=== PATIENT | female | born 2000 | race Caucasian/White ===

== ENCOUNTER 2021-08-24 11:24 | Outpatient (REF) | payer MEDICAID, SELFPAY ==
[2021-08-24 12:25] LABS: Binax Internal Control QC Valid; Binax Now Covid-19 Ag Negative (Negative)
== END 2021-08-24 11:25 | disposition home or self-care (01) ==
LOC: HO.LAB 11:24
PROVIDERS: Visit Provider Internal Medicine
DX: Z20.822 Contact with and (suspected) exposure to COVID-19 (principal)
CPT/HCPCS: C9803

== ENCOUNTER 2021-10-08 11:00 | Outpatient (RCR) | payer OTHER, SELFPAY | END 2021-10-08 11:25 | disposition home or self-care (01) | LOC: HO.OT 11:00 | PROVIDERS: PCP Pediatrics; Visit Provider Orthopaedic Surgery | DX: M79.643 Pain in unspecified hand (principal) | CPT/HCPCS: 97110; 97140; 97165 ==

== ENCOUNTER 2022-07-26 11:00 | Outpatient (RCR) | payer OTHER, SELFPAY | END 2022-07-27 10:24 | disposition home or self-care (01) | LOC: HO.OT 11:00 | PROVIDERS: Visit Provider Orthopaedic Surgery | DX: M79.641 Pain in right hand (principal); M79.642 Pain in left hand; R53.1 Weakness | CPT/HCPCS: 29125; 97110; 97165; 97760 ==

== ENCOUNTER 2025-06-24 10:40 | Outpatient (REF) | payer OTHER, SELFPAY ==
[2025-06-24 12:15] LABS: MANUAL DIFF FLAG NO
[2025-06-24 12:58] LABS: Hematocrit 43.8 % (37.0-47.0); Hemoglobin 14.0 g/dl (12.0-16.0); Imm Gran Abs Auto 0.03 X10*3/uL (0.00-0.03); Imm Gran Pct Auto 0.4 % (0.0-0.4); Lymphocytes Absolute Auto 1.9 X10*3/uL (1.2-4.9); Mean Corpuscular HGB Conc 32.0 g/dl (31.0-35.0); Mean Corpuscular Hemoglobin 30.3 pg (27.0-33.0); Mean Corpuscular Volume 94.8 fL (80.0-98.0); NRBC Abs Auto 0.000 X10*3/uL (0.0-0.012); NRBC Pct Auto 0.0 /100WBC (0.0-0.2); Platelet Count 375 X10*3/uL (160-400); Red Blood Count 4.62 X10*6/uL (4.20-5.50); White Blood Count 7.4 X10*3/uL (4.8-10.8)
[2025-06-24 13:30] LABS: Alanine Aminotransferase 15 U/L (0-31); Albumin Level 4.4 g/dL (3.5-5.0); Alkaline Phosphatase 61 U/L (39-117); Anion Gap 11 (12-20); Aspartate Amino Transferase 18 U/L (5-31); Blood Urea Nitrogen 10 mg/dL (9-16); Calcium 9.3 mg/dL (8.4-10.2); Carbon Dioxide 25 mmol/L (22-29); Chloride 107 mmol/L (96-108); Estimated Glomerular Filt Rate > 60; Iron 74 mcg/dL (30-160); Percent Iron Saturation 25 % (15-50); Potassium 3.8 mmol/L (3.3-5.1); Sodium 139 mmol/L (135-145); Total Iron Binding Capacity 291 mcg/dL (228-428); Total Protein 7.8 g/dL (6.5-8.0); Unsaturated Iron Binding 217 ug/dL
[2025-06-24 13:55] LABS: Folate 9.9 ng/mL (> or = 4.0); Vitamin B12 525 pg/mL (200-900)
== END 2025-06-24 10:41 | disposition home or self-care (01) ==
LOC: HO.LAB 10:40
DX: Z00.00 Encounter for general adult medical examination without abnormal findings (principal); Z13.0 Encounter for screening for diseases of the blood and blood-forming organs and certain disorders involving the immune mechanism; Z13.21 Encounter for screening for nutritional disorder; Z13.29 Encounter for screening for other suspected endocrine disorder; N92.0 Excessive and frequent menstruation with regular cycle; J45.909 Unspecified asthma, uncomplicated; G43.909 Migraine, unspecified, not intractable, without status migrainosus
CPT/HCPCS: 36415; 80053; 82306; 82607; 82746; 83540; 84443; 85025; 99395

== ENCOUNTER 2025-06-24 10:40 | Outpatient (AMB) | payer OTHER, SELFPAY ==
[2025-06-24 11:08] VITALS: BP 120/70; PULSE 94; TEMP 36.8; O2SAT 99
--- NOTE | 2025-06-24 11:08 | A.OFFPC_ITS ---
Vital Signs 06/24/25 11:08 Weight 222 lb BP 120/70 Blood Pressure Location Lt brachial Position Sitting Pulse 94 Pulse Source Pulse Oximeter Temp 98.3 F Temp Source Temporal Artery Scan Pulse Oximetry (%) 99 Oxygen Delivery Method Room Air Intake Visit Reasons: establish care Allergies No Known Allergies Allergy (Verified 06/24/25 11:26) Medication List - Last Reconciled 06/24/25 by Marilee Sweet PA-C No Known Home Meds Tobacco use date assessed: 06/24/25 HPI establish care HPI Details 24 year old female coming to the office for the first time. Presenting as a new patient to establish care; her last appointment with a provider was in 2021. Past surgical history is significant for spinal surgery with Brock rods placed in the middle back to correct an improperly shaped spine. Past medical history includes asthma, for which she no longer regularly uses an inhaler, but notes symptoms can flare up when she has a cold. She reports a history of heavy periods and was previously on oral contraceptive pills, which she found helpful and wishes to resume. She also experiences migraines from time to time and occasional heartburn, which she self-treats with [id number] Tums. pap smears: not sexually active vaccines: UTD declining flu shot PFSH Surgical History H/O Spinal surgery Family History Paternal Uncle Colon cancer, Onset Age: 40 Liver cancer Social History Housing: Apartment Patient Tobacco Use Status: Never used Tobacco Tobacco use type: Cigarette e-Cigarette/Vaping Use: Never Used Second Hand Smoke Exposure: No service: No Current occupational status: unemployed Female Reproductive History Menstrual Duration of menses: 6-7 days control method: pills Total pregnancies: 0 History of abnormal pap smear: No History of STI: No History of abnormal mammogram: No Questionnaire PHQ-9 Over the last 2 weeks, how often have you been bothered by any of the following problems? 1. Little interest or pleasure in doing things: not at all 2. Feeling down, depressed, or hopeless: not at all 3. Trouble falling or staying asleep, or sleeping too much: not at all 4. Feeling tired or having little energy: not at all 5. Poor appetite or overeating: not at all 6. Feeling bad about yourself - or that you are a failure or have let yourself or your family down: not at all 7. Trouble concentrating on things, such as reading the newspaper or watching television: not at all 8. Moving or speaking so slowly that other people could have noticed. Or the opposite - being so fidgety or restless that you have been moving around a lot more than usual: not at all 9. Thoughts that you would be better off or of hurting yourself in some way: not at all Total score: 0 Depression Screening Interpretation: Negative Depression Screening Done: Yes Source: Developed by Drs. Juanito Martínez, Nelly You, Dwaine Cavanaugh and colleagues, with an educational deepa from [employer]. Thrive Questionnaire Date Thrive assessed: 06/22/25 I am a: Patient What is your living situation today?: I have a steady place to live Within the past 12 months, did the food you bought not last and you didn't have the money to get more?: Never true Within the past 12 months, did you worry whether your food would run out before you got money to buy more?: Never true Do you have trouble paying for medicines?: No Do you have trouble getting transportation to medical appointments?: No Do you have trouble paying your heating and electricity bill?: No Do you have trouble taking care of your child, family member or friend?: No Do you have trouble with day-to-day activities such as bathing, preparing meals, shopping, managing finances, etc.?: No Are you currently unemployed and looking for a job?: No Are you interested in more education?: No Please select the resources that you would like help with: None Currently or been in a relationship where the following occur: No concerns reported THRIVE Score: 0 AUDIT C Alcohol Use Questionnaire (AUDIT-C) 1. How often do you have a drink containing alcohol?: Monthly or less 2. How many drinks containing alcohol do you have on a typical day when you are drinking?: 1 or 2 3. How often do you have six or more drinks on one occasion?: Never Total Score: 1 ROMA-7 AMB Questionnaire ROMA-7 Date ROMA - 7 assessed: 06/24/25 Feeling nervous, anxious, or on edge: 0 = Not at all Not being able to stop or control worryin = Not at all Worrying too much about different things: 0 = Not at all Trouble relaxin = Not at all Being so restless that it is hard to sit still: 0 = Not at all Becoming easily annoyed or irritable: 0 = Not at all Feeling afraid as if something awful might happen: 0 = Not at all Total ROMA-7 score (0-4 normal; 5-9 mild; 10-14 moderate; 15-21 severe): 0 Source: Developed by Drs. Juanito Martínez, Nelly You, Dwaine Cavanaugh and colleagues, with an educational deepa from [employer]. Review of Systems Const Denies body aches, Denies chills, Denies fever(s), Denies headache(s) and Denies poor appetite Eyes Reports no additional complaints ENT Denies dysphagia, Denies dizziness, Denies headache(s) and Denies odynophagia Card Denies chest pain, Denies syncope, Denies edema, Denies irregular heart rhythm, Denies lightheadedness and Denies dyspnea Resp Denies cough and Denies dyspnea GI Denies abdominal pain, Denies constipation, Denies dysphagia, Denies dyspepsia, Denies heartburn, Denies diarrhea, Denies nausea, Denies odynophagia and Denies vomiting Reports no additional complaints Musc Reports no additional complaints and Denies abnormal gait Skin/Breast Reports system reviewed and no additional complaints, except as documented Neuro Denies abnormal gait, Denies dizziness, Denies syncope and Denies headache(s) Psych Reports no additional complaints Physical exam (Primary Care) Vital Signs: Last Vital Signs Temp 98.3 F 06/24/25 11:08 Pulse 94 06/24/25 11:08 BP 120/70 06/24/25 11:08 Pulse Ox 99 06/24/25 11:08 Oxygen Delivery Method Room Air 06/24/25 11:08 Tobacco/Smoking Status: Tobacco use Status Tobacco use date assessed 06/24/25 06/24/25 11:14 Patient Tobacco Use Status Never used Tobacco 06/24/25 11:14 Tobacco use type Cigarette 06/24/25 11:14 e-Cigarette/Vaping Use Never Used 06/24/25 11:14 PHQ-9: PHQ-9 Score PHQ-9: Total score 0 06/24/25 11:23 Depression Screening Interpretation: Negative Thrive Assessment: Date of Thrive Assessment Date Thrive assessed 06/22/25 06/24/25 11:09 Currently or been in a relationship where the following occur: No concerns reported Const General: cooperative, healthy appearing, comfortable and no acute distress Orientation/consciousness: patient oriented x3 HENMT Head: Yes normocephalic Ears: hearing grossly normal bilaterally General nose exam: Normal external nose present Face and sinus: Yes normal facial exam and Yes sinuses nontender Mouth: Normal oral and palatal mucosa present and tongue normal Throat: Yes posterior oropharynx normal Eyes General: appearance normal, both eyes and all related structures Conjunctivae: conjunctivae normal Pupils: Equal, round and reactive pupils present EOM: EOMs intact bilaterally and No Nystagmus present Neck Neck: Yes full ROM and Yes no lymphadenopathy Chest Chest palpation & inspection: normal inspection of the chest Resp Effort & Inspection: normal respiratory effort Auscultation: clear to auscultation bilaterally, no crackles, no rales, no rhonchi and no wheezes Cardio Rate: regular rate Rhythm: regular rhythm Peripheral pulses: radial pulses present and dorsalis pedis present GI Inspection: Yes normal to inspection and No Abdominal wall edema Palpation (GI): Soft to palpation, not firm and nontender Auscultation: normal bowel sounds Rectal Exam - Female: deferred General: Yes no CVA tenderness Back/Spine/Pelvis Back: no CVA tenderness Skin General skin exam: no rashes or lesions noted Neuro General: patient oriented x3 Cranial nerves: Yes Equal, round and reactive pupils present, Yes Midline tongue present, Yes Ability to bilaterally elevate shoulders present and No Nystagmus present Gait exam (Neuro): Normal gait present Extrem General: Yes normal to inspection, Yes full ROM and No edema Psych Speech and movement: Normal speech and movement present Affect: normal affect Attitude: cooperative Insight: Good insight present (Psych) Judgement: Good judgement present (Psych) Coding Level of Care Code Est Pt Prev Care [id number]([id number]) Diagnoses Annual physical exam Z00.00 Asthma J45.909 Heavy menses N92.0 Migraine G43.909 Assessment & Plan Assessment & Plan (1) Annual physical exam: Code(s): Z00.00 - Encounter for general adult medical examination without abnormal findings Category: Medical Plan: Patient is up-to-date on all recommended routine screenings and vaccinations for her age. She is not sexually active and does not require Pap smears at this time. I did offer referral to Gynecology. Healthy diet and regular exercise is encouraged. Plan for updated blood work (2) Asthma: Code(s): J45.909 - Unspecified asthma, uncomplicated Category: Medical Plan: Asthma currently controlled on present medications. Continue on albuterol as needed. Avoid triggers such as allergies. (3) Heavy menses: Code(s): N92.0 - Excessive and frequent menstruation with regular cycle Category: Medical Plan: The patient reports heavy menstrual periods and wishes to restart oral contraceptive pills, which were effective for her in the past. A three-month pack of oral contraceptive pills containing iron will be prescribed. The patient was instructed to begin the medication on the first day of her next menstrual cycle. Counseling was provided on the risks, including an increased risk of blood clots (exacerbated by immobility and smoking), and the importance of reporting new onset of migraines with aura. Potential side effects such as weight gain, irregular periods, and mood swings were discussed, with the option to change medication if side effects are bothersome. Follow up in 3 months via telehealth (4) Migraine: Code(s): G43.909 - Migraine, unspecified, not intractable, without status migrainosus Category: Medical Plan: Has not had a migraine in the past several months and denies having aura previously. Plan This note was constructed using voice recognition software. While every effort has been made to ensure accuracy and chiropractor sole practitioner, still areas may have been included sometimes these areas may affect the content or meeting of the given symptoms. Total time spent caring for the patient today was 30 minutes. This includes time spent before the visit reviewing the chart, time spent during the visit, and time spent after the visit and documentation. Patient was informed and verbally consented to the use of an ambient scribe for clinic note documentation during this visit. Orders: Orders IRON PROFILE Today N92.0 - Excessive and frequent menstruation with regular cycle Complete Blood Count Auto Diff Today N92.0 - Excessive and frequent menstruation with regular cycle, Z13.0 - Encounter for screening for diseases of the blood and blood-forming organs and certain disorders involving the immune mechanism TSH reflex Free T4 Today Z13.29 - Encounter for screening for other suspected endocrine disorder Vitamin D 25-OH Total Today Z13.21 - Encounter for screening for nutritional disorder Comprehensive Met. Panel Today N92.0 - Excessive and frequent menstruation with regular cycle, Z00.00 - Encounter for general adult medical examination without abnormal findings Vitamin B12 and Folate Today Z13.21 - Encounter for screening for nutritional disorder Medications: New norethindrone-e.estradiol-iron 1 mg-20 mcg (21)/75 mg (7) ( FE 08/27 (28)) 1 tab PO DAILY 84 tabs 0RF albuterol sulfate 90 mcg/actuation (Ventolin HFA) 1 inh inhalation QID PRN 6.7 grams 0RF shortness of breath or wheezing
== END 2025-06-24 11:55 | disposition home or self-care (01) ==
LOC: HO.HMCH 10:41
DX: Z00.00 Encounter for general adult medical examination without abnormal findings (principal); J45.909 Unspecified asthma, uncomplicated; N92.0 Excessive and frequent menstruation with regular cycle; G43.909 Migraine, unspecified, not intractable, without status migrainosus